=== PATIENT | male | born 1985 | race Caucasian/White ===

== ENCOUNTER 2021-02-10 21:36 | Emergency (ER) | payer SELFPAY ==
[2021-02-10 21:48] VITALS: BP 150/78; BP 150/86; PULSE 101; PULSE 120; RESP 20; TEMP 37.2; O2SAT 98; BMI 26.6
--- NOTE | 2021-02-10 21:52 | ED_ITS ---
HPI - Fall General Chief Complaint: Fall Stated Complaint: fall etoh Time Seen by Provider: 02/10/21 21:40 Source: patient and EMS Mode of arrival: EMS Limitations: no limitations History of Present Illness HPI Narrative: Patient comes to emergency room after sustaining a fall. Patient states he has been drinking alcohol today, patient fell on the curve, hit his head, did not lose consciousness, denies being on blood thinners. Bystander called EMS, patient was reluctant to come to the emergency room. On arrival to the ED, patient removed his C-collar, patient has lacerations in the scalp on the posterior aspect. Patient states that he refuses any treatment, does not want sutures/cynthia. Patient is agreeable to head and neck CT. Patient refuses any blood work. Related Data Allergies Allergy/AdvReac Type Severity Reaction Status Date / Time No Known Allergies Allergy Verified 02/10/21 21:50 Review of Systems Review of Systems: Constitutional : No Weight loss, No Fever, No Chills, No Night Sweats, No Fatigue, No Malaise ENT/Mouth : No Hearing loss, No Ear Pain, No Nasal Congestion, No Sinus Pain, No Hoarseness, No sore throat, No Rhinorrhea, No Swallowing Difficulty Eyes: No Eye Pain, No Swelling, No Redness, No Foreign Body, No Discharge, No Vision Changes Cardiovascular : No Chest Pain, No SOB, No Dyspnea on Exertion, No Orthopnea, No Edema, No Palpitations Respiratory : No Cough, No Sputum, No Wheezing, No Smoke Exposure, No Dyspnea Gastrointestinal : No Nausea, No Vomiting, No Diarrhea, No Constipation, No abdominal Pain, No Hematochezia, No Melena Genitourinary : no irregular bleeding, No Dysuria, No Urinary Frequency, No Hematuria, No Urinary Incontinence, No Urgency, No Flank Pain, No Urinary Flow Changes, No Hesitancy Musculoskeletal : No joint pain, No Myalgias, No Joint Swelling Skin : A laceration to the scalp on the posterior aspect Neuro : No Weakness, No Numbness, No Paresthesias, No Loss of Consciousness, No Dizziness, No Headache Psych : No Anxiety/Panic, No Depression, No SI/HI/AH/VH, No Social Issues, Heme/Lymph: No Bruising, No Bleeding,No Lymphadenopathy Endocrine : No Polyuria, No Polydipsia, No Temperature Intolerance [facility] Past Medical History Medical History Alcohol abuse Physical Exam Vital Signs: Vital Signs: Last Vital Signs Temp 99.0 F 02/10/21 21:48 Pulse 101 H 02/10/21 21:48 Resp 20 02/10/21 21:48 BP 150/78 H 02/10/21 21:48 Pulse Ox 98 02/10/21 21:48 Body Mass Index 26.6 Appearance: Alert. Oriented X3. No acute distress. Eyes: Pupils equal, round and reactive to light. ENT: Pharynx normal. Neck: Normal inspection. Neck supple. No lymph nodes noted. No crepitus, no C- spine tenderness, no palpable step-off CVS: Normal heart rate and rhythm. Pulses normal. Normal S1 and S2 Respiratory: No respiratory distress. Breath sounds normal. No Wheezing. No rales Abdomen: Soft and nontender. No rigidity. No distention. good BS x4 Skin: Skin warm and dry. Three scalp lacerations on the posterior aspect, actively bleeding Extremities: No lower extremity edema. No lower extremity edema. No Lacerations. No Rash Neuro: Oriented X 3. No motor deficit. No sensory deficit. Moving all extermities. No slurred speech. Course Course Course Narrative: Patient still has several lacerations in the scalp, actively bleeding. Patient is refusing sutures or cynthia, refusing gauzes to hold pressure. I was informed by the seating and mobility technologist that she went to look for the patient, she has been looking for him for over 15 minutes. Patient is nowhere to be found, patient eloped. Patient's nurse and charge nurse notified security to check cameras for the time of elopement and also PD has been notified per charge nurse Discharge Plan Discharge Clinical Impression: Alcohol intoxication Qualifiers: Complication of substance-induced condition: with unspecified complication Qualified Code(s): F10.929 - Alcohol use, unspecified with intoxication, unspecified Laceration of scalp Qualifiers: Encounter type: initial encounter Qualified Code(s): S01.01XA - Laceration without foreign body of scalp, initial encounter Fall Qualifiers: Encounter type: initial encounter Qualified Code(s): W19.XXXA - Unspecified fall, initial encounter Patient Disposition: Elopement Interventions: ED Discharge Assessment Last Done: 02/10/21 22:45 Discharge Date/Time: 02/10/21 22:06
--- NOTE | 2021-02-10 22:44 | PC.NURSE ---
Pt eloped at approx 2200. Seen walking throughout emergency exit. Security called [employer].
== END 2021-02-10 22:06 | disposition left against medical advice (07) ==
PROVIDERS: Emergency Provider Emergency Medicine
DX: S01.91XA Laceration without foreign body of unspecified part of head, initial encounter (principal); W19.XXXA Unspecified fall, initial encounter; Y93.9 Activity, unspecified; Y92.9 Unspecified place or not applicable; Y99.9 Unspecified external cause status
CPT/HCPCS: 99283

== ENCOUNTER 2021-02-10 22:48 | Emergency (ER) | payer SELFPAY ==
--- NOTE | ~2021-02-10 | CT_ITS ---
EXAMINATION: NONCONTRAST HEAD CT EXAMINATION: NONCONTRAST HEAD CT NONCONTRAST CERVICAL SPINE CT INDICATION INFORMATION: EtOH, fall COMPARISON: None TECHNIQUE: Separate noncontrast CT examinations of the head and cervical spine were performed. Coronal head CT images and coronal and sagittal cervical spine images were created at the technologist workstation. DLP: 1253 mGy-cm DOSE LOWERING TECHNIQUES: This CT examination was performed using dose optimization techniques as appropriate, variously including the following: - Automated exposure control - Adjustment of mA and/or kV according to patient size (this includes techniques or standardized protocols for targeted exams were dose is matched to indication/reason for exam; i.e. extremities or head) - Use of iterative reconstruction technique FINDINGS: Head: There is no evidence of acute intracranial hemorrhage or territorial infarction. No abnormal mass-effect or midline shift is seen. Andrew to white matter differentiation is well preserved. No extra-axial fluid collections are identified. The ventricles are normal in size. There is no abnormal attenuation within the brain parenchyma. The osseous structures and soft tissues are normal. The mastoid air cells and visualized portions of the paranasal sinuses are well-aerated. Cervical spine: There is anatomic alignment of the vertebral bodies and posterior elements. Vertebral body heights are maintained. Intervertebral disc spaces are preserved. No evidence of acute fracture. No prevertebral soft tissue swelling. Visualized portions of the lung apices are unremarkable. The thyroid gland is unremarkable. Small amount of debris noted in the trachea at the thoracic inlet. CT/CT head/brain wo con IMPRESSION: No acute findings identified in the head or cervical spine.
--- NOTE | ~2021-02-10 | CT_ITS ---
EXAMINATION: NONCONTRAST HEAD CT EXAMINATION: NONCONTRAST HEAD CT NONCONTRAST CERVICAL SPINE CT INDICATION INFORMATION: EtOH, fall COMPARISON: None TECHNIQUE: Separate noncontrast CT examinations of the head and cervical spine were performed. Coronal head CT images and coronal and sagittal cervical spine images were created at the technologist workstation. DLP: 1253 mGy-cm DOSE LOWERING TECHNIQUES: This CT examination was performed using dose optimization techniques as appropriate, variously including the following: - Automated exposure control - Adjustment of mA and/or kV according to patient size (this includes techniques or standardized protocols for targeted exams were dose is matched to indication/reason for exam; i.e. extremities or head) - Use of iterative reconstruction technique FINDINGS: Head: There is no evidence of acute intracranial hemorrhage or territorial infarction. No abnormal mass-effect or midline shift is seen. Andrew to white matter differentiation is well preserved. No extra-axial fluid collections are identified. The ventricles are normal in size. There is no abnormal attenuation within the brain parenchyma. The osseous structures and soft tissues are normal. The mastoid air cells and visualized portions of the paranasal sinuses are well-aerated. Cervical spine: There is anatomic alignment of the vertebral bodies and posterior elements. Vertebral body heights are maintained. Intervertebral disc spaces are preserved. No evidence of acute fracture. No prevertebral soft tissue swelling. Visualized portions of the lung apices are unremarkable. The thyroid gland is unremarkable. Small amount of debris noted in the trachea at the thoracic inlet. CT/CT cervical spine wo con IMPRESSION: No acute findings identified in the head or cervical spine.
[2021-02-10 22:51] VITALS: BP 122/80; BP 150/49; PULSE 104; PULSE 130; RESP 17; TEMP 37.2; O2SAT 98; BMI 28.1
--- NOTE | 2021-02-10 22:53 | ED.ALCOHOL ---
HPI - Alcohol General Chief Complaint: Fall Stated Complaint: etoh Time Seen by Provider: 02/10/21 22:53 Source: patient and EMS Mode of arrival: EMS Limitations: no limitations History of Present Illness HPI narrative: Patient returns to the hospital after eloping a few minutes ago. Patient was seen walking, bleeding from his head by a bystander, PD and EMS was called. Patient brought back to the emergency room. Patient is still refusing blood work or laceration repair. Patient agreeable to head and neck CT Related Data Allergies Allergy/AdvReac Type Severity Reaction Status Date / Time No Known Allergies Allergy Verified 02/10/21 21:50 Review of Systems Review of Systems: Constitutional : No Weight loss, No Fever, No Chills, No Night Sweats, No Fatigue, No Malaise ENT/Mouth : No Hearing loss, No Ear Pain, No Nasal Congestion, No Sinus Pain, No Hoarseness, No sore throat, No Rhinorrhea, No Swallowing Difficulty Eyes: No Eye Pain, No Swelling, No Redness, No Foreign Body, No Discharge, No Vision Changes Cardiovascular : No Chest Pain, No SOB, No Dyspnea on Exertion, No Orthopnea, No Edema, No Palpitations Respiratory : No Cough, No Sputum, No Wheezing, No Smoke Exposure, No Dyspnea Gastrointestinal : No Nausea, No Vomiting, No Diarrhea, No Constipation, No abdominal Pain, No Hematochezia, No Melena Genitourinary : no irregular bleeding, No Dysuria, No Urinary Frequency, No Hematuria, No Urinary Incontinence, No Urgency, No Flank Pain, No Urinary Flow Changes, No Hesitancy Musculoskeletal : No joint pain, No Myalgias, No Joint Swelling Skin : Multiple lacerations to the scalp Neuro : No Weakness, No Numbness, No Paresthesias, No Loss of Consciousness, No Dizziness, No Headache Psych : No Anxiety/Panic, No Depression, No SI/HI/AH/VH, No Social Issues, Heme/Lymph: No Bruising, No Bleeding,No Lymphadenopathy Endocrine : No Polyuria, No Polydipsia, No Temperature Intolerance PMF Past Medical History Medical History Alcohol abuse Social History Social History Alcohol intake: current Patient Tobacco Use Status: Tobacco use Unknown Use of substances other than those prescribed or required for medical reasons: Unknown Advance Directives: No Advance Directives Information Provided: No Physical Exam Vital Signs: Vital Signs: Last Vital Signs Temp 99.0 F 02/10/21 22:51 Pulse 104 H 02/10/21 22:51 Resp 17 02/10/21 22:51 BP 150/49 H 02/10/21 22:51 Pulse Ox 98 02/10/21 22:51 Body Mass Index 28.1 Appearance: Alert. Oriented X3. No acute distress. Eyes: Pupils equal, round and reactive to light. ENT: Pharynx normal. Neck: Normal inspection. Neck supple. No lymph nodes noted. No crepitus CVS: Normal heart rate and rhythm. Pulses normal. Normal S1 and S2 Respiratory: No respiratory distress. Breath sounds normal. No Wheezing. No rales Abdomen: Soft and nontender. No rigidity. No distention. good BS x4 Skin: Skin warm and dry. Scalp has 3 bleeding lacerations, approximately 2 cm Extremities: No lower extremity edema. No lower extremity edema. No Lacerations. No Rash Neuro: Oriented X 3. No motor deficit. No sensory deficit. Moving all extermities. No slurred speech. Course Course Course Narrative: Patient remained, cooperative, patient has a steady gait, clinically not intoxicated. CT scan within normal limits. Patient once again declined to have his lacerations sutured/stapled MDM - Alcohol Imaging Data Head and cervical spine CT: Radiologist's impression: Head: There is no evidence of acute intracranial hemorrhage or territorial infarction. No abnormal mass-effect or midline shift is seen. Andrew to white matter differentiation is well preserved. No extra-axial fluid collections are identified. The ventricles are normal in size. There is no abnormal attenuation within the brain parenchyma. The osseous structures and soft tissues are normal. The mastoid air cells and visualized portions of the paranasal sinuses are well-aerated. Cervical spine: There is anatomic alignment of the vertebral bodies and posterior elements. Vertebral body heights are maintained. Intervertebral disc spaces are preserved. No evidence of acute fracture. No prevertebral soft tissue swelling. Visualized portions of the lung apices are unremarkable. The thyroid gland is unremarkable. Small amount of debris noted in the trachea at the thoracic inlet. CT/CT cervical spine wo con IMPRESSION: No acute findings identified in the head or cervical spine. Discharge Plan Discharge Clinical Impression: Alcohol intoxication Qualifiers: Complication of substance-induced condition: uncomplicated Qualified Code(s): F10.920 - Alcohol use, unspecified with intoxication, uncomplicated Laceration of head Qualifiers: Encounter type: initial encounter Location of open wound of head: scalp Patient Disposition: Home, Self-Care Instructions: Alcohol Intoxication (ED), Laceration (ED) Additional Instructions: Please follow-up with your primary care physician tomorrow. If you have any worsening or new symptoms, please return to the emergency room or call 911
--- NOTE | 2021-02-10 23:29 | PC.NURSE ---
Pt attempted to elope- recovered by security.
--- NOTE | 2021-02-10 23:40 | PC.NURSE ---
1:1 sitter at bedside. Pt is calm, cooperative at this time.
--- NOTE | 2021-02-11 01:03 | PC.NURSE ---
Pt ambulates w/ steady gait, aox3, no apparent distress, neuros intact. pt declined dressing to lacs.
== END 2021-02-11 01:04 | disposition home or self-care (01) ==
PROVIDERS: Emergency Provider Emergency Medicine
DX: S01.01XA Laceration without foreign body of scalp, initial encounter (principal); G44.309 Post-traumatic headache, unspecified, not intractable; M54.2 Cervicalgia; F10.920 Alcohol use, unspecified with intoxication, uncomplicated; Y90.8 Blood alcohol level of 240 mg/100 ml or more; W01.0XXA Fall on same level from slipping, tripping and stumbling without subsequent striking against object, initial encounter; Y93.9 Activity, unspecified; Y92.9 Unspecified place or not applicable; Y99.9 Unspecified external cause status; Z71.41 Alcohol abuse counseling and surveillance of alcoholic
CPT/HCPCS: 70450; 72125; 99284